=== PATIENT | female | born 1965 ===

== ENCOUNTER 2023-10-08 09:35 | Outpatient (CLI) | payer OTHER ==
[2023-10-08] MEDS ORDERED: AZOR 5-40 MG T1 EACH (13:10)
== END 2023-10-08 14:45 | disposition home or self-care (01) ==
LOC: EDSEX 09:35 → TOM 09:35
DX: C20 Malignant neoplasm of rectum (principal)

== ENCOUNTER 2023-10-08 10:46 | Outpatient (CLI) | payer OTHER ==
[2023-10-08] MEDS ORDERED: AZOR 5-40 MG T1 EACH (13:10)
== END 2023-10-08 10:51 | disposition home or self-care (01) ==
LOC: LAB 10:46
DX: C19 Malignant neoplasm of rectosigmoid junction (principal)

== ENCOUNTER 2023-10-12 05:38 | Day surgery (SDC) | payer OTHER ==
[2023-10-08 11:35] LABS: HEMATOCRIT 36.3 % (36.0-45.00); HEMOGLOBIN 12.2 g/dL (12.0-15.00); MEAN CORPUSCULAR HEMOGLOBIN 28.6 pg (27.00-32.0); MEAN CORPUSCULAR HGB CONC 33.7 g/dl (32.0-36.0); PLATELET COUNT 342 K/uL (150-450); RED BLOOD COUNT 4.27 M/uL (4.00-6.00); RED CELL DISTRIBUTION WIDTH 13.7 % (11.5-14.5)
[2023-10-08 11:38] LABS: PH,URINE 5.5 (5.0-8.0); URINE APPEARANCE Clear; URINE BILIRRUBIN Negative (NEGATIVE); URINE BLOOD Negative; URINE COLOR Yellow; URINE GLUCOSE Negative (NEGATIVE); URINE LEUKOCYTE Negative; URINE NITRATE Negative; URINE PROTEIN Negative (NEGATIVE); URINE UROBILINOGEN 0.2 E.U./dl
[2023-10-08 11:39] LABS: URINE BACTERIA 6.2 uL (0.0-1933); URINE EPITHELIAL CELLS 1.6 uL (0.0-38.8); URINE RBC 4.1 uL (0.0-20.8); URINE WBC 4.2 uL (0.0-23.2)
[2023-10-08 12:11] LABS: INR 1.09; PARTIAL THROMBOPLASTIN TIME 29.5 SECONDS (22.0-34.0); PROTHROMBIN TIME 11.4 SECONDS (9.0-11.5)
[2023-10-08 12:16] LABS: ALBUMIN 3.9 gm/dL (3.4-5.0); BILIRUBIN TOTAL 0.81 mg/dL (0.3-1.2); CREATININE SERUM 1.02 mg/dL (0.55-1.02); GFR 55.28; GLOBULINA 3.6 G/DL (2.4-3.5); POTASSIUM 4.65 mEq/L (3.5-5.1); TOTAL PROTEIN 7.5 gm/dL (6.4-8.2)
[~2023-10-12 05:38] MED LIST: AZOR 5-40 MG T1 EACH
[2023-10-12] MEDS ORDERED: CEFAZOLIN SODIUM 1,000 MG VIAL ONE (07:05)
[2023-10-12] MEDS ORDERED: LIDOCAINE HCL 1%/Epi 20ML VIAL IJ ONE ×2 (07:29→08:15)
[2023-10-12] MEDS ORDERED: HEPARIN SODIUM,PORCINE 500 UNITS/5 ML VIAL IV ONE ×2 (07:29→08:15)
[2023-10-12] MEDS ORDERED: BUPIVACAINE HCL 250MG/50ML VIAL ONE (07:30)
[2023-10-12] MEDS ORDERED: BUPIVACAINE HCL 250MG/50ML VIAL IJ ONE (08:15)
[2023-10-12] MEDS ORDERED: CEFAZOLIN SODIUM 1,000 MG VIAL IV ONE (08:15)
== END 2023-10-12 14:05 | disposition home or self-care (01) ==
LOC: CIR.AMB 05:38 → EDSEX 09:45 → CIR.AMB 14:05
PROVIDERS: ATTEND Colon & Rectal Surgery
DX: C20 Malignant neoplasm of rectum (principal); Z20.822 Contact with and (suspected) exposure to COVID-19